=== PATIENT | male | born 1975 | race African-American/Black ===

== ENCOUNTER 2017-03-25 23:15 | Emergency (ER) | payer MEDICAID ==
[~2017-03-25] VITALS: Ht 190.5 cm; Wt 90.7 kg
[~2017-03-25 23:15] MED LIST: ASP81EC PO; CHL25C PO; HYDR25T PO; LISI-646 PO; LORA1TAB12 PO; OLAN5TAB30 PO
[2017-03-25 23:26] VITALS: BP 122/82
[2017-03-26] MEDS ORDERED: LORazepam 0.5 MG TAB PO ONE (00:45)
== END 2017-03-26 01:01 | disposition home or self-care (01) ==
LOC: EDBD 23:15 → EDUNIT# 23:15 → ER 23:23
DX: F41.1 Generalized anxiety disorder (principal); F32.9 Major depressive disorder, single episode, unspecified; I10 Essential (primary) hypertension; F15.10 Other stimulant abuse, uncomplicated